=== PATIENT | male | born 1985 | race Hispanic/Latino ===

== ENCOUNTER 2017-07-15 05:26 | Emergency (ER) | payer MEDICAID ==
[2017-07-15 05:52] VITALS: BP 137/92; PULSE 73; RESP 16; TEMP 97.8; O2SAT 100
[2017-07-15] MEDS ORDERED: Tetracaine 0.5% Ophth 2 ML BOTTLE ONE (06:05)
--- NOTE | 2017-07-15 06:17 | ED PDOC ---
HPI: Eye Injury/Pain Time Seen by Provider: 07/15/17 05:45 Chief Complaint (Nursing): Eye Problem Chief Complaint (Provider): Eye Problem History Per: Patient History/Exam Limitations: no limitations Onset/Duration Of Symptoms: Other (x2 weeks) Current Symptoms Are (Timing): Constant Additional Complaint(s): 32 y/o male presents to the ED complaining of left eye pain x 2weeks that worsened today. Pain is constant and patient describes it as burning sensation. Patient reports that yesterday his eyes went haywire and he visited [facility] in [place] and was prescribed 2 antibiotics drops. Pain has worsened since then. Patient was told he has chemical medeiros and scratch to cornea. Reports blurry vision and headache. Denies use of contacts or glasses. Denies any further medical complaints. PMD: Ab Pollock MD Past Medical History Reviewed: Historical Data, Nursing Documentation, Vital Signs Vital Signs: Last Vital Signs Temp 97.8 F 07/15/17 05:46 Pulse 73 07/15/17 05:46 Resp 16 07/15/17 05:46 BP 137/92 H 07/15/17 05:46 Pulse Ox 100 07/15/17 05:46 - Medical History Other PMH: ADHD - Surgical History Surgical History: No Surg Hx - Family History Family History: States: Unknown Family Hx - Social History Current smoker - smoking cessation education provided: No Alcohol: None Drugs: Denies - Home Medications Home Medications: Ambulatory Orders Medication Instructions Recorded oxyCODONE/Acetaminophen [Percocet 1 tab PO QID PRN #20 tab 07/15/17 5/325 mg Tab] - Allergies Allergies/Adverse Reactions: Allergies Allergy/AdvReac Type Severity Reaction Status Date / Time Penicillins Allergy ANAPHYLAXIS Verified 07/15/17 05:52 Review of Systems ROS Statement: Except As Marked, All Systems Reviewed And Found Negative (As per HPI, otherwise negative) Eyes: Positive for: Pain (Left eye pain), Vision Change (Blurry vision) Neurological: Positive for: Headache - ECG O2 Sat by Pulse Oximetry: 100 (RA) Pulse Ox Interpretation: Normal Disposition - Clinical Impression Clinical Impression: Corneal abrasion Counseled Patient/Family Regarding: Studies Performed, Diagnosis, Need For Followup, Rx Given - Disposition Referrals: Alcon Lorenz MD [Staff Provider] - 07/16/17 (FOLLOW UP WITH [facility] HELPER IN 24-48 HOURS) Disposition: Routine/Home Disposition Time: 06:24 Condition: IMPROVED Prescriptions: oxyCODONE/Acetaminophen [Percocet 5/325 mg Tab] 1 tab PO QID PRN #20 tab PRN Reason: Pain Instructions: Corneal Abrasion (ED) Forms: [facility] ED School/Work Excuse
== END 2017-07-15 06:46 | disposition home or self-care (01) ==
LOC: H.ER 05:26
DX: S05.02XA Injury of conjunctiva and corneal abrasion without foreign body, left eye, initial encounter (principal); Y92.89 Other specified places as the place of occurrence of the external cause